=== PATIENT | female | born 1995 | race Caucasian/White ===

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

== ENCOUNTER 2017-02-09 16:47 | Emergency (ER) | payer OTHER ==
[2017-02-09 16:59] VITALS: O2SAT 100
[2017-02-09] MEDS ORDERED: TORAdol 30 mg Injection IM ONE (17:41)
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
[2017-02-09] MEDS ORDERED: TORAdol 30 mg Injection ONE (17:47)
[2017-02-09 18:47] VITALS: BP 142/77; PULSE 76
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
== END 2017-02-09 18:48 | disposition home or self-care (01) ==
LOC: ED 16:47
DX: S22.20XA Unspecified fracture of sternum, initial encounter for closed fracture (principal); R07.89 Other chest pain; Y04.0XXA Assault by unarmed brawl or fight, initial encounter
CPT/HCPCS: 71020; 71120; 96372; 99283; J1885

== ENCOUNTER 2017-08-09 14:24 | Emergency (ER) | payer OTHER ==
[2017-08-09 14:41] VITALS: BP 146/79; PULSE 112; O2SAT 98
[2017-08-09] MEDS ORDERED: TYLENOL EXTRA STRENGTH 500 MG PO STA (14:53)
--- NOTE | 2017-08-09 14:58 | ERPHSYRPT ---
- History of Present Illness Time Seen by Provider: 08/09/17 14:52 Source: patient Exam Limitations: no limitations Patient Subjective Stated Complaint: patietn experiencing sore throat and vomitting, states shes got nasal and oral congestion. toothache is horrible Triage Nursing Assessment: pt alert nad orientedx3, able to ambulate by self, skin wamr dry and intact, throat is reddened with some blisters, nasal nad oral drainange coughing up green mucus, tooth broken off on upper left side of the mouth. Physician History: The patient is a 22-year-old female who is 5 months complaining of tooth and gum pain on the left upper and a sore throat. The dental problem began yesterday morning and the sore throat began last night. She has a known cracked tooth at the site of the pain. She denies fever or chills. She took an unknown antibiotic for the tooth pain. She has been vomiting today but she does not feel that is a concern because she is able to drink water. Her past medical history is significant for frequent strep throat. She also noted that yesterday morning she woke up with reflux. Timing/Duration: gradual onset Severity: moderate ENT Location: throat, dental Prearrival Treatment: prescription meds Modifying Factors: Improves With: activity Associated Symptoms: sore throat, tooth pain, No fever, No chills Allergies/Adverse Reactions: Penicillins Allergy (Verified 04/24/16 21:27) Hx Tetanus, Diphtheria Vaccination/Date Given: Yes Hx Influenza Vaccination/Date Given: No Hx Pneumococcal Vaccination/Date Given: No Immunizations Up to Date: Yes - Review of Systems Constitutional: No Fever, No Chills Eyes: No Symptoms Ears, Nose, & Throat: Throat Pain, Hoarse Respiratory: No Cough, No Dyspnea Cardiac: No Chest Pain, No Edema, No Syncope Abdominal/Gastrointestinal: No Abdominal Pain, No Nausea, No Vomiting, No Diarrhea Genitourinary Symptoms: No Dysuria Musculoskeletal: No Back Pain, No Neck Pain Skin: No Rash Neurological: No Dizziness, No Focal Weakness, No Sensory Changes Psychological: No Symptoms Endocrine: No Symptoms Hematologic/Lymphatic: No Symptoms Immunological/Allergic: No Symptoms All Other Systems: Reviewed and Negative - Past Medical History Pertinent Past Medical History: No Neurological History: No Pertinent History ENT History: Other Cardiac History: No Pertinent History Respiratory History: No Pertinent History Endocrine Medical History: No Pertinent History Musculoskeletal History: No Pertinent History GI Medical History: No Pertinent History History: No Pertinent History Psycho-Social History: Attention Deficit Disorder Female Reproductive Disorders: Other Other Medical History: hx of chronic tonsilitis - Past Surgical History Past Surgical History: Yes Neuro Surgical History: No Pertinent History Cardiac: No Pertinent History Respiratory: No Pertinent History Gastrointestinal: No Pertinent History Genitourinary: No Pertinent History Musculoskeletal: No Pertinent History Female Surgical History: No Pertinent History Other Surgical History: D AND C - Social History Smoking Status: Current every day smoker How long have you smoked: 4 y Exposure to second hand smoke: Yes Alcohol Use: None Drug Use: none Patient Lives Alone: No Significant Family History: no pertinent family hx - Female History Hx Now: Yes Expected Date of Delivery: 11/22/17 - Nursing Vital Signs Nursing Vital Signs: Initial Vital Signs Temperature 97.9 F 08/09/17 14:25 Pulse Rate 112 H 08/09/17 14:25 Respiratory Rate 20 08/09/17 14:25 Blood Pressure 146/79 08/09/17 14:25 O2 Sat by Pulse Oximetry 98 08/09/17 14:25 Pain Scale Pain Intensity 8 - Physical Exam General Appearance: no apparent distress, alert Eye Exam: bilateral eye: PERRL, EOMI Ear Exam: bilateral ear: auricle normal Nasal Exam: normal inspection Throat Exam: dental tenderness (left upper posterior molar is avulsed with erythema of surrounding gum tissue.), pharynx tenderness Neck Exam: supple Cardiovascular/Respiratory Exam: normal breath sounds, regular rate/rhythm Abdominal Exam: non-tender, soft Neurologic Exam: alert, oriented x 3, sensation nml, No motor deficits Skin Exam: normal color, warm, dry SpO2 Interpretation: normal SpO2: 98 Oxygen Delivery: Room Air Ordered Tests: Active Orders 24 hr Category Date Time Status CULTURE, THROAT Stat Lab 08/09/17 14:45 Received STREP SCREEN-BETA A Stat Lab 08/09/17 14:45 Completed Medication Summary Discontinued Medications Generic Name Dose Route Start Last Admin Trade Name Freq PRN Reason Stop Dose Admin Acetaminophen 1,000 mg 08/09/17 14:53 08/09/17 15:02 Tylenol Extra Strength 500 Mg PO 08/09/17 14:54 1,000 mg STAT STA Administration Acetaminophen Confirm 08/09/17 15:01 Tylenol Extra Strength 500 Mg Administered 08/09/17 15:02 Dose 1,000 mg .ROUTE .ST[facility]-MED ONE Lab/Rad Data: Laboratory Results 08/09/17 Range/Units 14:45 Streptococcus Screen NEGATIVE (Negative) - Progress Progress: unchanged Progress Note: 08/09/17 15:30 Pt given tylenol 1000 mg PO and immediately complained of dental pain. Counseled pt/family regarding: lab results, diagnosis - Departure Time of Disposition: 15:31 Departure Disposition: Home Clinical Impression: Dental abscess Condition: Stable Critical Care Time: No Referrals: MARIBETH CONRAD MD [Primary Care Provider] - Additional Instructions: You have a dental abscess and a sore throat. The rapid strep test was negative. You were given Tylenol 1000 mg in the ER. Continue to take Tylenol 1000 mg every 6-8 hours as needed. At this time I have declined to give you narcotics because of your . Your pain just started easing off when she started taking the antibiotic. Take cefdinir 300 mg 2 times a day for 10 days. Follow-up with the dentist on Saturday. Prescriptions: Cefdinir 300 mg PO BID #20 capsule
[2017-08-09] MEDS ORDERED: TYLENOL EXTRA STRENGTH 500 MG ONE (15:01)
== END 2017-08-09 15:44 | disposition home or self-care (01) ==
LOC: ED 14:24
DX: O26.892 Other specified pregnancy related conditions, second trimester (principal); K04.7 Periapical abscess without sinus; J02.9 Acute pharyngitis, unspecified
CPT/HCPCS: 87070; 87430; 99283; A9270-GY

== ENCOUNTER 2017-09-03 21:42 | Emergency (ER) | payer OTHER | END 2017-09-03 23:04 | disposition left against medical advice (07) | LOC: ED 21:42 | DX: R10.9 Unspecified abdominal pain (principal) ==

== ENCOUNTER 2017-09-11 19:23 | Emergency (ER) | payer OTHER ==
[2017-09-11 20:43] VITALS: BP 111/78
[2017-09-11] MEDS ORDERED: GI COCKTAIL 45 ML (Maalox/Lidocaine) PO ONE (20:48)
[2017-09-11] MEDS ORDERED: XYLOCAINE HCl Viscous ONE (20:53)
[2017-09-11] MEDS ORDERED: MAALOX ES 30 ML UNIT DOSE ONE (20:53)
[2017-09-11 20:56] VITALS: PULSE 100; O2SAT 94
--- NOTE | 2017-09-11 21:22 | ERPHSYRPT ---
- History of Present Illness Time Seen by Provider: 09/11/17 20:30 Historian: patient Exam Limitations: no limitations Patient Subjective Stated Complaint: c/o recent hx of "black stools" 1 week ago though reports still having pain to upper abd, increased reflux, and pain with bm. reports soft stools Triage Nursing Assessment: Pt 30 wks preg FHT 150. PT reports dull pain to upper abd states worse with eating and when having BM. pt states pain is constant and dull to upper abd going up into throat. pt reports pain to throat worse in am. Denies any blood in stool at this time. TP p/w/d resp easy a@[id number] Physician History: 22 y/o white female presents with 1 week h/o black stools intermittently one week ago. she is 30 weeks . pt states she feels it is relux of acid. pts gallbladder still in place. no n/v/d. pt has non radiating upper midline discomfort assoc with eating and having a bowel movement. fht of 150 on exam today. Timing/Duration: day(s) (a few ) Activities at Onset: other (eating and having bms) Abdominal Pain Onset Location: LUQ, epigastric Pain Radiation: no radiation Severity of Pain-Max: mild Severity of Pain-Current: mild Modifying Factors: Improves With: defecating, eating (both worsen) Associated Symptoms: No back, No chest pain, No diaphoresis, No diarrhea, No fever/chills, No nausea, No shortness of breath, No vomiting Previous symptoms: same symptoms as today Allergies/Adverse Reactions: Penicillins Allergy (Verified 04/24/16 21:27) Hx Tetanus, Diphtheria Vaccination/Date Given: Yes Hx Influenza Vaccination/Date Given: No Hx Pneumococcal Vaccination/Date Given: No - Review of Systems Constitutional: No Symptoms, No Fever, No Chills Eyes: No Symptoms Ears, Nose, & Throat: No Symptoms Respiratory: No Symptoms, No Cough, No Dyspnea, No Stridor, No Wheezing Cardiac: No Symptoms, No Chest Pain, No Palpitations Abdominal/Gastrointestinal: Abdominal Pain (epigastric), No Nausea, No Vomiting , No Diarrhea, No Constipation Genitourinary Symptoms: No Symptoms, Dysuria, Frequency, Hematuria Musculoskeletal: No Symptoms, No Back Pain, No Neck Pain Skin: No Symptoms, No Cellulitis Neurological: No Symptoms, No Dizziness Psychological: No Symptoms Endocrine: No Symptoms Hematologic/Lymphatic: No Symptoms Immunological/Allergic: No Symptoms All Other Systems: Reviewed and Negative - Past Medical History Pertinent Past Medical History: No Neurological History: No Pertinent History ENT History: Other Cardiac History: No Pertinent History Respiratory History: No Pertinent History Endocrine Medical History: No Pertinent History Musculoskeletal History: No Pertinent History GI Medical History: No Pertinent History History: No Pertinent History Psycho-Social History: Attention Deficit Disorder Female Reproductive Disorders: Other Other Medical History: hx of chronic tonsilitis - Past Surgical History Past Surgical History: Yes Neuro Surgical History: No Pertinent History Cardiac: No Pertinent History Respiratory: No Pertinent History Gastrointestinal: No Pertinent History Genitourinary: No Pertinent History Musculoskeletal: No Pertinent History Female Surgical History: No Pertinent History Other Surgical History: D AND C - Social History Smoking Status: Current every day smoker How long have you smoked: 4 y Exposure to second hand smoke: Yes Alcohol Use: None Drug Use: none Patient Lives Alone: No Significant Family History: no pertinent family hx - Female History Hx Now: Yes Expected Date of Delivery: 11/22/17 - Nursing Vital Signs Nursing Vital Signs: Initial Vital Signs Temperature 98.1 F 09/11/17 19:56 Pulse Rate 97 H 09/11/17 19:56 Respiratory Rate 18 09/11/17 19:56 Blood Pressure 114/88 09/11/17 19:56 O2 Sat by Pulse Oximetry 97 09/11/17 19:56 Pain Scale Pain Intensity 5 - Physical Exam General Appearance: no apparent distress Eye Exam: PERRL/EOMI, eyes nml inspection Ears, Nose, Throat Exam: normal ENT inspection Neck Exam: normal inspection, non-tender, supple, full range of motion Respiratory Exam: normal breath sounds, lungs clear, airway intact, No chest tenderness, No respiratory distress Cardiovascular Exam: regular rate/rhythm, normal heart sounds, normal peripheral pulses Gastrointestinal/Abdomen Exam: soft, normal bowel sounds, tenderness (mild epigastric), pulsatile mass, other ( abdomen), No distention, No guarding, No rebound Pelvic Exam: not done Rectal Exam: deferred Back Exam: normal inspection, normal range of motion Extremity Exam: normal inspection, normal range of motion, pelvis stable Neurologic Exam: alert, oriented x 3, cooperative, director of tax services II-XII nml as tested, normal mood/affect, nml cerebellar function, nml station & gait Skin Exam: normal color, warm, dry SpO2 Interpretation: borderline oxygenation SpO2: 94 Oxygen Delivery: Room Air - Course Nursing assessment & vital signs reviewed: Yes Ordered Tests: Medication Summary Discontinued Medications Generic Name Dose Route Start Last Admin Trade Name Haylee PRN Reason Stop Dose Admin Al Hydrox/Mg Hydrox/Simethicone Confirm 09/11/17 20:53 Maalox Es 30 Ml Unit Dose Administered 09/11/17 20:54 Dose 30 ml .ROUTE .STK-MED ONE Lidocaine HCl Confirm 09/11/17 20:53 Xylocaine Hcl Viscous * Administered 09/11/17 20:54 Dose 15 ml .ROUTE .ST[facility]-MED ONE Magnesium Hydroxide 45 ml 09/11/17 20:48 09/11/17 20:56 Gi Cocktail 45 Ml (Maalox/Lidocaine) PO 09/11/17 20:49 45 ml STAT ONE Administration - Progress Progress: unchanged Progress Note: 09/11/17 21:25 gi cocktail did not sig improve discomfort. spoke to pt about no need for ct scan or u/s tonight. will tx pts sx as she does not have an acute abdomen and is 30 weeks . Counseled pt/family regarding: diagnosis, need for follow-up - Departure Time of Disposition: 21:26 Departure Disposition: Home Clinical Impression: Gastritis, Gastroesophageal reflux disease Condition: Stable Critical Care Time: No Referrals: MARIBETH CONRAD MD [Primary Care Provider] - Additional Instructions: drink plenty of fluids. avoid fatty, greasy, spicy foods. take medications as prescribed. sleep with head elevated to aid in reducing acid reflux symptoms. follow up with primary doctor for further management Prescriptions: Ranitidine HCl [Zantac] 150 mg PO BID #10 tablet
[2017-09-11] MEDS ORDERED: Pepcid 20 MG PO ONE (21:30)
[2017-09-11] MEDS ORDERED: Pepcid 20 MG ONE (21:32)
== END 2017-09-11 21:37 | disposition home or self-care (01) ==
LOC: ED 19:23
DX: O26.893 Other specified pregnancy related conditions, third trimester (principal); Z3A.30 30 weeks gestation of pregnancy; K29.70 Gastritis, unspecified, without bleeding; K21.9 Gastro-esophageal reflux disease without esophagitis
CPT/HCPCS: 99283; A9270-GY

== ENCOUNTER 2017-10-31 21:47 | Observation (INO) | payer OTHER ==
[2017-10-31 23:01] VITALS: O2SAT 83
[2017-10-31] MEDS ORDERED: TYLENOL EXTRA STRENGTH 500 MG ONE (23:29)
[2017-10-31] MEDS ORDERED: TYLENOL EXTRA STRENGTH 500 MG PO ONE (23:30)
[2017-11-01 00:09] VITALS: BP 113/57; PULSE 81
== END 2017-11-01 00:05 | disposition home or self-care (01) ==
LOC: OB 21:47
PROVIDERS: ADMIT Family Medicine; ATTEND Family Medicine
DX: Z34.83 Encounter for supervision of other normal pregnancy, third trimester (principal)
CPT/HCPCS: G0378 ×2; A9270-GY

== ENCOUNTER 2017-11-17 19:30 | Inpatient (IN) | payer OTHER ==
[2017-11-17] MEDS ORDERED: XYLOCAINE 1% HCL 20 ML MDV IJ PRN (21:19)
[2017-11-17] MEDS ORDERED: Ephedrine Sulfate 50 MG/ML IV PRN (21:19)
[2017-11-17] MEDS ORDERED: TYLENOL EXTRA STRENGTH 500 MG PO PRN (21:19)
[2017-11-17] MEDS ORDERED: OB EPIDURAL NAROPIN/SUFENTANIL IN NACL EPIDURAL PRN (21:19)
[2017-11-17 21:23] LABS: Amphetamine,Urine NEGATIVE (NEGATIVE); Barbiturate,Urine NEGATIVE (NEGATIVE); Benzodiazepine,Urine NEGATIVE (NEGATIVE); Cocaine,Urine NEGATIVE (NEGATIVE); Methadone,Urine NEGATIVE (NEGATIVE); Opiate,Urine NEGATIVE (NEGATIVE); PCP,Urine NEGATIVE (NEGATIVE); THC,Urine NEGATIVE (NEGATIVE)
[2017-11-17] MEDS ORDERED: PITOCIN 30 UNITS/ LR 500 ML 500 ML IV SCH (21:30)
[2017-11-17] MEDS ORDERED: Lactated Ringers 1,000 ML IV SCH (21:30)
[2017-11-17] MEDS: Lactated Ringers 1,000 ML IV ONE ×2 (21:32→22:35)
[2017-11-18 00:25] LABS: BASOPHIL % 0.1 % (0.0-0.4); Basophil (Absolute #) 0.02 (0-0.4); Eosinophil % 0.5 % (0.00-5.0); Eosinophil (Absolute #) 0.09 (0-0.5); Granulocyte Absolute (ANC) 11.73 (1.4-6.9); Granulocytes % 71.5 % (36.0-66.0); Hematocrit 32.8 % (35-47); Hemoglobin 11.2 gm/dl (12.0-16.0); Lymphocyte (Absolute #) 3.54 (1.0-4.6); Lymphocytes % 21.5 % (24.0-44.0); Mean Cell Volume 90.9 fl (78-100); Mean Corpuscular Hgb Concent. 34.1 g/dl (32-36); Mean Platelet Volume 10.7 fl (6-9.5); Monocyte (Absolute #) 1.06 (0.0-1.3); Monocytes % 6.4 % (0.0-12.0); Platelet Count 305 K/mm3 (150-450); Red Blood Count 3.61 M/mm3 (4.1-5.4); Red Cell Distribution Width 13.4 % (11.5-14.0); White Blood Count 16.4 K/mm3 (4.0-10.5)
[2017-11-18 02:49] VITALS: O2SAT 100
[2017-11-18] MEDS ORDERED: Dermoplast Spray TP PRN (04:17)
[2017-11-18] MEDS: TUCKS TP PRN (04:26)
[2017-11-18] MEDS: NORCO 5/325 MG PO PRN ×4 (04:26→20:40)
[2017-11-18 04:49] LABS: BAND 4 % (0.0-2.0); Eosinophil 1 % (0.00-3.0); Lymphocytes 18 % (24-44); Monocyte 4 % (0.0-12.0); Neutrophils 73 % (36.0-66.0); Platelet Estimate NORMAL (NORMAL); Total Cells Counted 100
[2017-11-18 05:35] LABS: ABO TYPING AB
[2017-11-18 05:36] LABS: RH TYPING NEGATIVE
[2017-11-18 05:40] LABS: ANTIBODY SCREEN POSITIVE (NEGATIVE)
[2017-11-18 06:14] LABS: Hematocrit 30.6 % (35-47); Hemoglobin 10.3 gm/dl (12.0-16.0); Mean Cell Volume 91.3 fl (78-100); Mean Corpuscular Hemoglobin 30.7 pg (26-32); Mean Corpuscular Hgb Concent. 33.7 g/dl (32-36); Mean Platelet Volume 10.8 fl (6-9.5); Platelet Count 284 K/mm3 (150-450); Red Blood Count 3.35 M/mm3 (4.1-5.4); Red Cell Distribution Width 13.4 % (11.5-14.0); White Blood Count 19.9 K/mm3 (4.0-10.5)
[2017-11-18 06:15] LABS: Appearance CLOUDY (CLEAR); Bilirubin NEGATIVE (NEGATIVE); Blood MODERATE Ery/ul (0-5); Glucose NEGATIVE (NEGATIVE); Ketones NEGATIVE (NEGATIVE); Leukocyte Esterase NEGATIVE (NEGATIVE); Nitrite NEGATIVE (NEGATIVE); Protein,Urine Dip NEGATIVE (Negative); Urobilinogen NEGATIVE mg/dL (0-1)
[2017-11-18 06:58] LABS: BAND 3 % (0.0-2.0); Eosinophil 1 % (0.00-3.0); Lymphocytes 8 % (24-44); Monocyte 4 % (0.0-12.0); Neutrophils 84 % (36.0-66.0); Platelet Estimate NORMAL (NORMAL); Total Cells Counted 100
[2017-11-18] MEDS: FERREX 150 PO SCH (09:43)
[2017-11-18] MEDS: Colace 100 MG PO SCH ×2 (09:43→22:23)
[2017-11-18] MEDS: MOTRIN 400 MG PO PRN ×2 (11:14→17:55)
[2017-11-19] MEDS: NORCO 5/325 MG PO PRN ×3 (03:20→20:22)
[2017-11-19 05:29] LABS: Granulocyte Absolute (ANC) 7.05 (1.4-6.9); Hematocrit 30.6 % (35-47); Hemoglobin 10.4 gm/dl (12.0-16.0); Mean Cell Volume 91.3 fl (78-100); Mean Platelet Volume 10.1 fl (6-9.5); Platelet Count 261 K/mm3 (150-450); Red Blood Count 3.35 M/mm3 (4.1-5.4); Red Cell Distribution Width 13.6 % (11.5-14.0); White Blood Count 11.8 K/mm3 (4.0-10.5)
[2017-11-19] MEDS: MOTRIN 400 MG PO PRN ×3 (08:50→23:30)
[2017-11-19 09:45] LABS: BAND 3 % (0.0-2.0); Eosinophil 1 % (0.00-3.0); Lymphocytes 22 % (24-44); Monocyte 10 % (0.0-12.0); Neutrophils 64 % (36.0-66.0); Platelet Estimate NORMAL (NORMAL); Total Cells Counted 100
[2017-11-19] MEDS ORDERED: Rhogam Plus 300 MCG IM ONE (10:00)
[2017-11-19] MEDS: Colace 100 MG PO SCH ×2 (10:23→20:21)
[2017-11-19] MEDS: FERREX 150 PO SCH (10:23)
[2017-11-19] MEDS ORDERED: Abilify 10 MG PO SCH ×2 (20:00→23:29)
[2017-11-19] MEDS ORDERED: Abilify 10 MG ONE (20:11)
[2017-11-20] MEDS: NORCO 5/325 MG PO PRN ×2 (02:04→11:03)
[2017-11-20] MEDS: MOTRIN 400 MG PO PRN (05:30)
[2017-11-20] MEDS ORDERED: Rhogam Plus 300 MCG IM ONE (10:00)
--- NOTE | 2017-11-20 10:05 | PCM.DS ---
Discharge Summary Date of Admission: 11/17/17 19:30 Admitting Physician: MARIBETH CONRAD Consults: Consults on Case 11/17/17 21:20 Notify Anesthesia Provider PRN Primary Care Provider: MARIBETH CONRAD Allergies Allergies Penicillins Allergy (Verified 10/31/17 23:03) Swelling of Face Hospital Summary - Hospital Course Hospital Course: patient presented in spontaneous labor, had normal . no complications. bottle feeding her male, well bonded - Vitals & Intake/Output Vital Signs: Vital Signs Temperature 97.9 F 11/20/17 02:07 Pulse Rate 52 L 11/20/17 02:07 Respiratory Rate 18 11/20/17 02:07 Blood Pressure 128/75 11/20/17 02:07 O2 Sat by Pulse Oximetry 100 11/18/17 01:00 Intake & Output: Intake & Output 11/17/17 11/18/17 11/19/17 11/20/17 11:59 11:59 11:59 11:59 Intake Total 3385 540 1450 Output Total 450 Balance 2935 540 1450 Weight 76.657 kg - Lab Result Diagrams: 11/19/17 05:00 Micro Results-Entire Visit: Microbiology 11/17/17 20:00 Urine Culture - Final Urine, Void <10K NORMAL SKIN JAMIA PROBABLE SKIN CONTAMINANT - Procedures and Test Procedures and Tests throughout Hospitalization: Therapy Orders & Screens 11/18/17 01:15 Standby Routine Comment: Diagnosis: contractions Discharge Exam General Appearance: no apparent distress, alert Skin Exam: normal color, warm, dry Respiratory Exam: normal breath sounds, lungs clear, No respiratory distress Cardiovascular Exam: regular rate/rhythm, normal heart sounds Gastrointestinal/Abdomen Exam: soft, No tenderness, No mass Extremity Exam: normal inspection, normal range of motion Final Diagnosis/Problem List - Final Discharge Diagnosis/Problem (1) Vaginal delivery Current Visit: No Status: Acute - Discharge Disposition: Home, Self-Care Condition: Stable Prescriptions: No Action ARIPiprazole [Aripiprazole] 15 mg PO HS Additional Instructions: take tylenol or ibuprofen as needed for pain Follow up with: MARIBETH CONRAD MD [Primary Care Provider] - 1 Week
[2017-11-20] MEDS: FERREX 150 PO SCH (11:02)
[2017-11-20] MEDS: Colace 100 MG PO SCH (11:03)
[2017-11-20] MEDS: TUCKS TP PRN (11:07)
[2017-11-20 11:29] VITALS: BP 134/72; PULSE 63
== END 2017-11-20 15:05 | disposition home or self-care (01) | DRG 775 ==
LOC: OB 19:30 → OBSVTOIN 19:30
PROVIDERS: ADMIT Family Medicine; ATTEND Family Medicine
PROC: 10E0XZZ Delivery of Products of Conception, External Approach (ICD-10-PCS; principal; 2017-11-17)
DX: O80 Encounter for full-term uncomplicated delivery (principal); Z3A.39 39 weeks gestation of pregnancy; Z37.0 Single live birth
CPT/HCPCS: 36415; 80307; 81001; 85025; 85461; 86850; 86900; 86901; 87086; 94799; 96372; G0378; J2590; J2790; J2795; A9270-GY

== ENCOUNTER 2017-12-21 11:31 | Emergency (ER) | payer OTHER ==
--- NOTE | 2017-12-21 12:02 | ERPHSYRPT ---
- History of Present Illness Time Seen by Provider: 12/21/17 11:44 Source: patient Exam Limitations: no limitations Physician History: The patient is a 22-year-old female complaining of left upper molar and gum pain for 3 days. It hurts her at night. It's red and swollen. She saw a dentist about this who referred her to an oral surgeon. She states the oral surgeon wanted an additional $400 to help her. She does not have the money. She denies fever or chills. Timing/Duration: gradual onset, days (3) Severity: moderate ENT Location: dental Prearrival Treatment: no prearrival treatment Modifying Factors: Improves With: nothing Associated Symptoms: tooth pain, No fever, No chills, No headache Allergies/Adverse Reactions: Penicillins Allergy (Verified 12/21/17 11:47) Swelling of Face Home Medications: ARIPiprazole [Aripiprazole] 15 mg PO HS 11/17/17 [History] Hx Tetanus, Diphtheria Vaccination/Date Given: Yes Hx Influenza Vaccination/Date Given: No Hx Pneumococcal Vaccination/Date Given: No - Review of Systems Constitutional: No Fever, No Chills Eyes: No Symptoms Ears, Nose, & Throat: Mouth Pain Respiratory: No Cough, No Dyspnea Cardiac: No Chest Pain, No Edema, No Syncope Abdominal/Gastrointestinal: No Abdominal Pain, No Nausea, No Vomiting, No Diarrhea Genitourinary Symptoms: No Dysuria Musculoskeletal: No Back Pain, No Neck Pain Skin: No Rash Neurological: No Dizziness, No Focal Weakness, No Sensory Changes Psychological: No Symptoms Endocrine: No Symptoms Hematologic/Lymphatic: No Symptoms Immunological/Allergic: No Symptoms All Other Systems: Reviewed and Negative - Past Medical History Pertinent Past Medical History: No Neurological History: No Pertinent History ENT History: Other Cardiac History: No Pertinent History Respiratory History: No Pertinent History Endocrine Medical History: No Pertinent History Musculoskeletal History: No Pertinent History GI Medical History: No Pertinent History History: No Pertinent History Psycho-Social History: Attention Deficit Disorder Female Reproductive Disorders: Other Other Medical History: hx of chronic tonsilitis. bipolar. ptsd - Past Surgical History Past Surgical History: Yes Neuro Surgical History: No Pertinent History Cardiac: No Pertinent History Respiratory: No Pertinent History Gastrointestinal: No Pertinent History Genitourinary: No Pertinent History Musculoskeletal: No Pertinent History Female Surgical History: No Pertinent History Other Surgical History: D AND C - Social History Smoking Status: Current every day smoker How long have you smoked: 4 y Exposure to second hand smoke: No Alcohol Use: None Drug Use: none Patient Lives Alone: No Significant Family History: no pertinent family hx - Physical Exam General Appearance: no apparent distress, alert Eye Exam: bilateral eye: PERRL, EOMI Ear Exam: bilateral ear: auricle normal, canal normal Nasal Exam: normal inspection Throat Exam: dental tenderness (poor dentition; swelling, redness, and tenderness to gum tissue in upper anterior left molars.) Neck Exam: supple Cardiovascular/Respiratory Exam: normal breath sounds, regular rate/rhythm Abdominal Exam: non-tender, soft Neurologic Exam: alert, oriented x 3, sensation nml, No motor deficits Skin Exam: normal color, warm, dry SpO2 Interpretation: normal Oxygen Delivery: Room Air - Departure Time of Disposition: 12:06 Departure Disposition: Home Clinical Impression: Dental abscess Condition: Stable Critical Care Time: No Referrals: MARIBETH CONRAD MD [Primary Care Provider] - Additional Instructions: You have poor dentition and a dental abscess. You were given Toradol 60 mg IM in the ER. Take naproxen 500 mg 2 times a day as needed. Also take Tylenol 1000 mg every 6-8 hours as needed. Please call your dentist and discussed with them about getting a different oral surgeon. Prescriptions: Clindamycin HCl 1 cap PO QID #40 capsule Naproxen 500 mg PO BID PRN #30 tablet
[2017-12-21] MEDS ORDERED: TORAdol 30 mg Injection IM ONE (12:03)
[2017-12-21] MEDS ORDERED: TORAdol 30 mg Injection ONE (12:09)
[2017-12-21 12:12] VITALS: BP 112/82; PULSE 72; O2SAT 99
== END 2017-12-21 12:37 | disposition home or self-care (01) ==
LOC: ED 11:31
DX: K04.7 Periapical abscess without sinus (principal)
CPT/HCPCS: 96372; 99283; J1885

== ENCOUNTER 2019-03-01 02:54 | Observation (INO) | payer MEDICAID, OTHER ==
[2019-03-01 03:42] LABS: Amourphous Crystal FEW /HPF (NEGATIVE); Appearance SLIGHTLY CLOUDY (CLEAR); Bilirubin NEGATIVE (NEGATIVE); Blood NEGATIVE Ery/ul (0-5); Epithelial Cells RARE /HPF (FEW); Glucose NEGATIVE (NEGATIVE); Ketones NEGATIVE (NEGATIVE); Leukocyte Esterase NEGATIVE (NEGATIVE); Mucus SLIGHT /HPF (NEGATIVE); Nitrite NEGATIVE (NEGATIVE); Protein,Urine Dip NEGATIVE (Negative); RBC 0-2 /HPF (0-2); Specific Gravity 1.015 (1.005-1.025); Urobilinogen NEGATIVE mg/dL (0-1)
[2019-03-01 03:50] LABS: Amphetamine,Urine NEGATIVE (NEGATIVE); Barbiturate,Urine NEGATIVE (NEGATIVE); Benzodiazepine,Urine NEGATIVE (NEGATIVE); Cocaine,Urine NEGATIVE (NEGATIVE); Methadone,Urine NEGATIVE (NEGATIVE); Opiate,Urine NEGATIVE (NEGATIVE); PCP,Urine NEGATIVE (NEGATIVE); THC,Urine NEGATIVE (NEGATIVE)
[2019-03-01] MEDS ORDERED: Lactated Ringers 1,000 ML IV SCH (04:30)
[2019-03-01 08:43] VITALS: BP 107/57; PULSE 77
--- NOTE | 2019-03-01 09:09 | XRAY ---
Indication: Abdominal cramping. Evaluate cervical length. Two-dimensional transvaginal pelvic sonogram performed to evaluate cervical length. Cervix is closed measuring 3.4 cm in length.
[2019-03-01] MEDS ORDERED: ROCEPHIN 1 Gm-D5w 50 ml Bag** 1 G/50 ML IVPB IV SCH ×2 (10:00→22:00)
[2019-03-01 11:47] LABS: Hematocrit 29.2 % (35-47); Mean Cell Volume 93.6 fl (78-100); Mean Corpuscular Hemoglobin 32.1 pg (26-32); Mean Corpuscular Hgb Concent. 34.2 g/dl (32-36); Mean Platelet Volume 10.4 fl (7.5-11.0); Platelet Count 199 K/mm3 (150-450); Red Blood Count 3.12 M/mm3 (4.1-5.4); Red Cell Distribution Width 12.4 % (11.5-14.0); White Blood Count 9.4 K/mm3 (4.0-10.5)
[2019-03-01 14:31] LABS: ABO TYPING AB; Antibody Screen NEGATIVE (NEGATIVE); RH TYPING NEGATIVE
[2019-03-03 13:40] LABS: Immune Status: Immune
[2019-03-03 13:54] LABS: RPR Screen Non Reactive (Non Reactive)
[2019-03-03 22:01] LABS: HIV1 Negative (Negative); HIV2 Negative (Negative)
[2019-03-03 22:34] LABS: HIV Antigen/Antibody Combo See Confirm (Non Reactive); Hepatitis B Sur Ag Screen Non Reactive (Non Reactive); Hepatitis C Antibody by EIA Non Reactive (Non Reactive)
== END 2019-03-01 12:15 | disposition home or self-care (01) ==
LOC: OB 02:54
PROVIDERS: ADMIT Family Medicine; ATTEND Family Medicine
DX: O47.02 False labor before 37 completed weeks of gestation, second trimester (principal); Z3A.24 24 weeks gestation of pregnancy
CPT/HCPCS: 36415; 76817; 80055; 80307; 81001; G0378; J0696

== ENCOUNTER 2019-05-09 18:01 | Emergency (ER) | payer OTHER ==
--- NOTE | 2019-05-09 18:43 | ERPHSYRPT ---
- History of Present Illness Time Seen by Provider: 05/09/19 18:32 Source: patient Exam Limitations: no limitations Patient Subjective Stated Complaint: pt reports shortness of breath, chest tightness with deep breath, headache, cough, sensitivity to light, generalized body aches starting yesterday. pt also reports left breast tenderness. pt reports she saw Dr Conrad 05/07/19 with complaints of nausea/vomiting and was prescribed promethazine, pt reports when she got to the pharmacy the script required a PA and it was busy and she did not want to wait. pt reports healthy thus far. pt denies any contractions at this time. pt denies any leaking of fluid or vaginal bleeding. Triage Nursing Assessment: pt is aox3, pt appears in no acute distress, pt speaking in full sentences, pupils perrl, afebrile, resps easy and non labored, lung sounds are clear throughout all leong, cap refill < 3 seconds, pt radial pulses strong and equal, abdomen, no edema appreciated, pt skin pink warm dry. Physician History: For the past 2 weeks pt has had earaches; for the past 2 days shortness of air, constant dull anterior chest pain 5/10, non-productive cough, sore throat and generalized aches. Pt also states 2 days ago she vomited x6 without blood and had about 10 episodes of diarrhea without blood. Pt states she is 34 weeks 5 days and has not had any abdominal pain and has good movement today. Pt is (one miscarriage). Allergies/Adverse Reactions: Penicillins Allergy (Verified 05/09/19 18:31) Swelling of Face Home Medications: Pnv No.103/Folic/Om3s/Fish Oil [ Gummies] 1 tab PO DAILY 03/01/19 [ History] Hx Tetanus, Diphtheria Vaccination/Date Given: Yes Hx Influenza Vaccination/Date Given: No Hx Pneumococcal Vaccination/Date Given: No Immunizations Up to Date: Yes Travel Risk - International Travel Have you traveled outside of the country in past 3 weeks: No Have you or anyone close to you been diagnosed with or: No Do your reside in a community with a known COVID-19 case?: Yes If Yes where:: [place] - Coronavirus Screening Has patient experienced Coronavirus symptoms: Yes Symptoms experienced: respiratory symptoms (i.e.Cought,shortness of breath) Date of respiratory symptoms onset:: 05/08/19 (cough & shortness of air) - Review of Systems Constitutional: No Fever Ears, Nose, & Throat: Ear Pain, Throat Pain Respiratory: Cough, Dyspnea Cardiac: Chest Pain Abdominal/Gastrointestinal: Vomiting, Diarrhea, No Abdominal Pain Musculoskeletal: Arthralgias All Other Systems: Reviewed and Negative - Past Medical History Pertinent Past Medical History: No Neurological History: No Pertinent History ENT History: Other Cardiac History: No Pertinent History Respiratory History: No Pertinent History Endocrine Medical History: No Pertinent History Musculoskeletal History: No Pertinent History GI Medical History: No Pertinent History History: No Pertinent History Psycho-Social History: Attention Deficit Disorder Female Reproductive Disorders: Other Other Medical History: hx of chronic tonsilitis. bipolar. ptsd - Past Surgical History Past Surgical History: Yes Neuro Surgical History: No Pertinent History Cardiac: No Pertinent History Respiratory: No Pertinent History Gastrointestinal: No Pertinent History Genitourinary: No Pertinent History Musculoskeletal: No Pertinent History Female Surgical History: No Pertinent History Other Surgical History: D AND C - Social History Smoking Status: Never smoker How long have you smoked: 12 yrs Exposure to second hand smoke: No Alcohol Use: None Drug Use: none Patient Lives Alone: No Significant Family History: no pertinent family hx - Female History Hx Now: Yes Expected Date of Delivery: 06/16/19 - Nursing Vital Signs Nursing Vital Signs: Initial Vital Signs Temperature 98.7 F 05/09/19 18:13 Pulse Rate 91 H 05/09/19 18:13 Respiratory Rate 22 05/09/19 18:13 Blood Pressure 112/71 05/09/19 18:13 O2 Sat by Pulse Oximetry 99 05/09/19 18:13 Pain Scale Pain Intensity 0 - Physical Exam General Appearance: alert Eye Exam: PERRL/EOMI Ears, Nose, Throat Exam: pharyngeal erythema (mild) Neck Exam: normal inspection Respiratory Exam: lungs clear Cardiovascular/Chest Exam: normal heart sounds Abdominal/Gastrointestinal Exam: normal bowel sounds, other (gravid uterus with fundus B/T umbilicus and xiphoid.), No tenderness Extremity Exam: No pedal edema Peripheral Pulses Exam: dorsalis-pedis (R): 2+, dorsalis-pedis (L): 2+ Neurologic Exam: alert, cooperative Skin Exam: warm, dry SpO2 Interpretation: normal SpO2: 99 O2 Delivery: Room Air - Course Nursing assessment & vital signs reviewed: Yes EKG Interpreted by Me: RATE (97), Sinus Rhythm, NORMAL AXIS, NORMAL INTERVALS Ordered Tests: Active Orders 24 hr Category Date Time Status EKG-ER Only STAT Care 05/09/19 18:45 Active IV Insertion STAT Care 05/09/19 19:40 Active AMYLASE Stat Lab 05/09/19 19:05 Completed BMP Urgent Lab 05/10/19 03:21 Completed CBC W DIFF Stat Lab 05/09/19 19:05 Completed CMP Stat Lab 05/09/19 19:05 Completed D-DIMER QUANTITATIVE Stat Lab 05/09/19 19:05 Completed LIPASE Stat Lab 05/09/19 19:05 Completed [place] Screen Stat Lab 05/09/19 19:05 Completed NT PRO BNP Stat Lab 05/09/19 19:05 Completed TROPONIN Q3H Lab 05/09/19 19:05 Completed TROPONIN Q3H Lab 05/09/19 22:35 Completed TROPONIN Q3H Lab 05/10/19 00:29 Completed TROPONIN Q3H Lab 05/10/19 03:21 Received TROPONIN Q3H Lab 05/10/19 06:45 Ordered UA W/RFX UR CULTURE Stat Lab 05/09/19 22:03 Completed Medication Summary Generic Name Dose Route Start Last Admin Trade Name Freq PRN Reason Stop Dose Admin Potassium Chloride/Sodium Chloride 1,000 mls @ 500 mls/hr 05/09/19 19:45 23:10 Sodium Chloride 0.9% W/ 20 Meq Kcl/Liter IV 06/08/19 19:44 Infused .Q2H DONALD Infusion Potassium Chloride/Sodium Chloride 1,000 mls @ 500 mls/hr 05/10/19 01:00 03:15 Sodium Chloride 0.9% W/ 20 Meq Kcl/Liter IV 06/09/19 00:59 Infused .Q2H DONALD Infusion Discontinued Medications Generic Name Dose Route Start Last Admin Trade Name Freq PRN Reason Stop Dose Admin Acetaminophen 650 mg 05/09/19 20:10 05/09/19 20:15 Tylenol 325 Mg PO 05/09/19 20:11 650 mg STAT ONE Administration Acetaminophen Confirm 05/09/19 20:14 Tylenol 325 Mg Administered 05/09/19 20:15 Dose 650 mg .ROUTE .STK-MED ONE Al Hydrox/Mg Hydrox/Simethicone 20 ml 05/10/19 01:13 Maalox Es 30 Ml Unit Dose PO 05/10/19 01:14 STAT ONE Al Hydrox/Mg Hydrox/Simethicone Confirm 05/10/19 01:14 Maalox Es 30 Ml Unit Dose Administered 05/10/19 01:15 Dose 30 ml .ROUTE .STK-[facility] ONE Al Hydrox/Mg Hydrox/Simethicone 30 ml 05/10/19 01:10 05/10/19 01:32 Maalox Es 30 Ml Unit Dose PO 05/10/19 01:11 30 ml STAT ONE Administration Potassium Bicarbonate 50 meq 05/10/19 00:50 05/10/19 00:57 K-Lyte 25 Meq PO 05/10/19 00:51 50 meq STAT ONE Administration Potassium Bicarbonate Confirm 05/10/19 00:54 K-Lyte 25 Meq Administered 05/10/19 00:55 Dose 50 meq .ROUTE .[facility] ONE Lab/Rad Data: Laboratory Result Diagrams 05/09/19 19:05 05/10/19 03:21 Laboratory Results 05/10/19 05/10/19 05/09/19 Range/Units 03: 00:29 22:35 WBC (4.0-10.5) K/mm3 RBC (4.1-5.4) M/mm3 Hgb (12.0-16.0) gm/dl Hct (35-47) % MCV (78-100) fl MCH (26-32) pg MCHC (32-36) g/dl RDW (11.5-14.0) % Plt Count (150-450) K/mm3 MPV (7.5-11.0) fl Gran % (36.0-66.0) % Eos # (Auto) (0-0.5) Absolute Lymphs (auto) (1.0-4.6) Absolute Monos (auto) (0.0-1.3) Lymphocytes % (24.0-44.0) % Monocytes % (0.0-12.0) % Eosinophils % (0.00-5.0) % Basophils % (0.0-0.4) % Absolute Granulocytes (1.4-6.9) Basophils # (0-0.4) D-Dimer (215-500) ng/mL Sodium 139 (137-145) mmol/L Potassium 3.6 D (3.5-5.1) mmol/L Chloride 110 H (98-107) mmol/L Carbon Dioxide 25 (22-30) mmol/L Anion Gap 8.0 (5-15) MEQ/L BUN 2 L (7-17) mg/dL Creatinine 0.31 L (0.52-1.04) mg/dL Estimated GFR > 60.0 ML/MIN Glucose 108 H (74-106) mg/dL Calcium 8.2 L (8.4-10.2) mg/dL Total Bilirubin (0.2-1.3) mg/dL AST (14-36) U/L ALT (0-35) U/L Alkaline Phosphatase (38-126) U/L Troponin I < 0.012 < 0.012 (0.000-0.034) ng/mL NT-Pro-B Natriuret Pep (0-450) pg/mL Serum Total Protein (6.3-8.2) g/dL Albumin (3.5-5.0) g/dL Amylase (30-110) U/L Lipase (23-300) U/L Urine Color (YELLOW) Urine Appearance (CLEAR) Urine pH (5-6) Ur Specific [place] (1.005-1.025) Urine Protein (Negative) Urine Ketones (NEGATIVE) Urine Blood (0-5) [place]/ul Urine Nitrite (NEGATIVE) Urine Bilirubin (NEGATIVE) Urine Urobilinogen (0-1) mg/dL Ur Leukocyte Esterase (NEGATIVE) Urine WBC (Auto) (0-5) /HPF Urine RBC (Auto) (0-2) /HPF U Epithel Cells (Auto) (FEW) /HPF Urine Bacteria (Auto) (NEGATIVE) /HPF Urine Mucus (Auto) (NEGATIVE) /HPF Urine Culture Reflexed (NO) Urine Glucose (NEGATIVE) mg/dL Monoscreen (Negative) Influenza Type A Ag (NEGATIVE) Influenza Type B Ag (NEGATIVE) RSV (PCR) (Negative) Group A Strep Antibody (NEGATIVE) 05/09/19 05/09/19 05/09/19 Range/Units 22:03 19:36 19:05 WBC (4.0-10.5) K/mm3 RBC (4.1-5.4) M/mm3 Hgb (12.0-16.0) gm/dl Hct (35-47) % MCV (78-100) fl MCH (26-32) pg MCHC (32-36) g/dl RDW (11.5-14.0) % Plt Count (150-450) K/mm3 MPV (7.5-11.0) fl Gran % (36.0-66.0) % Eos # (Auto) (0-0.5) Absolute Lymphs (auto) (1.0-4.6) Absolute Monos (auto) (0.0-1.3) Lymphocytes % (24.0-44.0) % Monocytes % (0.0-12.0) % Eosinophils % (0.00-5.0) % Basophils % (0.0-0.4) % Absolute Granulocytes (1.4-6.9) Basophils # (0-0.4) D-Dimer (215-500) ng/mL Sodium (137-145) mmol/L Potassium (3.5-5.1) mmol/L Chloride (98-107) mmol/L Carbon Dioxide (22-30) mmol/L Anion Gap (5-15) MEQ/L BUN (7-17) mg/dL Creatinine (0.52-1.04) mg/dL Estimated GFR ML/MIN Glucose (74-106) mg/dL Calcium (8.4-10.2) mg/dL Total Bilirubin (0.2-1.3) mg/dL AST (14-36) U/L ALT (0-35) U/L Alkaline Phosphatase (38-126) U/L Troponin I (0.000-0.034) ng/mL NT-Pro-B Natriuret Pep (0-450) pg/mL Serum Total Protein (6.3-8.2) g/dL Albumin (3.5-5.0) g/dL Amylase (30-110) U/L Lipase (23-300) U/L Urine Color YELLOW (YELLOW) Urine Appearance SLIGHTLY CLOUDY (CLEAR) Urine pH 7.0 (5-6) Ur Specific [place] 1.013 (1.005-1.025) Urine Protein NEGATIVE (Negative) Urine Ketones NEGATIVE (NEGATIVE) Urine Blood NEGATIVE (0-5) [place]/ul Urine Nitrite NEGATIVE (NEGATIVE) Urine Bilirubin NEGATIVE (NEGATIVE) Urine Urobilinogen NEGATIVE (0-1) mg/dL Ur Leukocyte Esterase TRACE (NEGATIVE) Urine WBC (Auto) 0-2 (0-5) /HPF Urine RBC (Auto) 0-2 (0-2) /HPF U Epithel Cells (Auto) FEW (FEW) /HPF Urine Bacteria (Auto) RARE (NEGATIVE) /HPF Urine Mucus (Auto) SLIGHT (NEGATIVE) /HPF Urine Culture Reflexed NO (NO) Urine Glucose NEGATIVE (NEGATIVE) mg/dL Monoscreen NEGATIVE (Negative) Influenza Type A Ag NEGATIVE (NEGATIVE) Influenza Type B Ag NEGATIVE (NEGATIVE) RSV (PCR) NEGATIVE (Negative) Group A Strep Antibody NEGATIVE (NEGATIVE) 05/09/19 05/09/19 05/09/19 Range/Units 19:05 19:05 19:05 WBC (4.0-10.5) K/mm3 RBC (4.1-5.4) M/mm3 Hgb (12.0-16.0) gm/dl Hct (35-47) % MCV (78-100) fl MCH (26-32) pg MCHC (32-36) g/dl RDW (11.5-14.0) % Plt Count (150-450) K/mm3 MPV (7.5-11.0) fl Gran % (36.0-66.0) % Eos # (Auto) (0-0.5) Absolute Lymphs (auto) (1.0-4.6) Absolute Monos (auto) (0.0-1.3) Lymphocytes % (24.0-44.0) % Monocytes % (0.0-12.0) % Eosinophils % (0.00-5.0) % Basophils % (0.0-0.4) % Absolute Granulocytes (1.4-6.9) Basophils # (0-0.4) D-Dimer 846 H* (215-500) ng/mL Sodium (137-145) mmol/L Potassium (3.5-5.1) mmol/L Chloride (98-107) mmol/L Carbon Dioxide (22-30) mmol/L Anion Gap (5-15) MEQ/L BUN (7-17) mg/dL Creatinine (0.52-1.04) mg/dL Estimated GFR ML/MIN Glucose (74-106) mg/dL Calcium (8.4-10.2) mg/dL Total Bilirubin (0.2-1.3) mg/dL AST (14-36) U/L ALT (0-35) U/L Alkaline Phosphatase (38-126) U/L Troponin I < 0.012 (0.000-0.034) ng/mL NT-Pro-B Natriuret Pep 79.7 (0-450) pg/mL Serum Total Protein (6.3-8.2) g/dL Albumin (3.5-5.0) g/dL Amylase 55 (30-110) U/L Lipase 115 (23-300) U/L Urine Color (YELLOW) Urine Appearance (CLEAR) Urine pH (5-6) Ur Specific [place] (1.005-1.025) Urine Protein (Negative) Urine Ketones (NEGATIVE) Urine Blood (0-5) [place]/ul Urine Nitrite (NEGATIVE) Urine Bilirubin (NEGATIVE) Urine Urobilinogen (0-1) mg/dL Ur Leukocyte Esterase (NEGATIVE) Urine WBC (Auto) (0-5) /HPF Urine RBC (Auto) (0-2) /HPF U Epithel Cells (Auto) (FEW) /HPF Urine Bacteria (Auto) (NEGATIVE) /HPF Urine Mucus (Auto) (NEGATIVE) /HPF Urine Culture Reflexed (NO) Urine Glucose (NEGATIVE) mg/dL Monoscreen (Negative) Influenza Type A Ag (NEGATIVE) Influenza Type B Ag (NEGATIVE) RSV (PCR) (Negative) Group A Strep Antibody (NEGATIVE) 05/09/19 05/09/19 05/09/19 Range/Units 19:05 19:05 00:29 WBC 11.4 H (4.0-10.5) K/mm3 RBC 3.17 L (4.1-5.4) M/mm3 Hgb 9.7 L (12.0-16.0) gm/dl Hct 28.5 L (35-47) % MCV 89.9 (78-100) fl MCH 30.6 (26-32) pg MCHC 34.0 (32-36) g/dl RDW 13.1 (11.5-14.0) % Plt Count 194 (150-450) K/mm3 MPV 10.5 (7.5-11.0) fl Gran % 75.0 H (36.0-66.0) % Eos # (Auto) 0.05 (0-0.5) Absolute Lymphs (auto) 1.98 (1.0-4.6) Absolute Monos (auto) 0.81 (0.0-1.3) Lymphocytes % 17.3 L (24.0-44.0) % Monocytes % 7.1 (0.0-12.0) % Eosinophils % 0.4 (0.00-5.0) % Basophils % 0.2 (0.0-0.4) % Absolute Granulocytes 8.56 H (1.4-6.9) Basophils # 0.02 (0-0.4) D-Dimer (215-500) ng/mL Sodium 139 138 (137-145) mmol/L Potassium 2.7 L* 2.7 L* (3.5-5.1) mmol/L Chloride 107 108 H (98-107) mmol/L Carbon Dioxide 26 24 (22-30) mmol/L Anion Gap 8.3 8.7 (5-15) MEQ/L BUN 3 L 3 L (7-17) mg/dL Creatinine 0.29 L 0.35 L (0.52-1.04) mg/dL Estimated GFR > 60.0 > 60.0 ML/MIN Glucose 92 170 H (74-106) mg/dL Calcium 8.7 8.5 (8.4-10.2) mg/dL Total Bilirubin 0.40 (0.2-1.3) mg/dL AST 23 (14-36) U/L ALT 12 (0-35) U/L Alkaline Phosphatase 72 (38-126) U/L Troponin I (0.000-0.034) ng/mL NT-Pro-B Natriuret Pep (0-450) pg/mL Serum Total Protein 6.2 L (6.3-8.2) g/dL Albumin 3.1 L (3.5-5.0) g/dL Amylase (30-110) U/L Lipase (23-300) U/L Urine Color (YELLOW) Urine Appearance (CLEAR) Urine pH (5-6) Ur Specific [place] (1.005-1.025) Urine Protein (Negative) Urine Ketones (NEGATIVE) Urine Blood (0-5) [place]/ul Urine Nitrite (NEGATIVE) Urine Bilirubin (NEGATIVE) Urine Urobilinogen (0-1) mg/dL Ur Leukocyte Esterase (NEGATIVE) Urine WBC (Auto) (0-5) /HPF Urine RBC (Auto) (0-2) /HPF U Epithel Cells (Auto) (FEW) /HPF Urine Bacteria (Auto) (NEGATIVE) /HPF Urine Mucus (Auto) (NEGATIVE) /HPF Urine Culture Reflexed (NO) Urine Glucose (NEGATIVE) mg/dL Monoscreen (Negative) Influenza Type A Ag (NEGATIVE) Influenza Type B Ag (NEGATIVE) RSV (PCR) (Negative) Group A Strep Antibody (NEGATIVE) - Progress Progress: improved Discussed with : Freddy (spoke with Dr. Dao - pt may go home when K+ elevates.) Counseled pt/family regarding: lab results - Departure Departure Disposition: Home Clinical Impression: Chest pain, shortness of air, vomiting, diarrhea, hypokalemia - corrected in er , Pharyngitis Condition: Stable Critical Care Time: No Referrals: MARIBETH CONRAD MD [Primary Care Provider] - Instructions: Shortness of Breath (Dyspnea) (DC), Chest Pain, Nausea and Vomiting, Adult, Diarrhea and Traveler's Diarrhea, Adult (DC) Additional Instructions: Follow up with Dr Conrad tomorrow. Stay at home(self-isolation) for the next 14 days. Prescriptions: Promethazine HCl 25 mg [Phenergan 25 mg] 25 mg PO Q4H PRN PRN #14 tablet PRN Reason: Nausea/Vomiting
[2019-05-09 19:10] LABS: Absolute Neutrophil Ct (ANC) 8.56 (1.4-6.9); BASOPHIL % 0.2 % (0.0-0.4); Basophil (Absolute #) 0.02 (0-0.4); Eosinophil % 0.4 % (0.00-5.0); Eosinophil (Absolute #) 0.05 (0-0.5); Hematocrit 28.5 % (35-47); Hemoglobin 9.7 gm/dl (12.0-16.0); Lymphocyte (Absolute #) 1.98 (1.0-4.6); Lymphocytes % 17.3 % (24.0-44.0); Mean Cell Volume 89.9 fl (78-100); Mean Corpuscular Hemoglobin 30.6 pg (26-32); Mean Platelet Volume 10.5 fl (7.5-11.0); Monocyte (Absolute #) 0.81 (0.0-1.3); Monocytes % 7.1 % (0.0-12.0); Platelet Count 194 K/mm3 (150-450); Red Blood Count 3.17 M/mm3 (4.1-5.4); Red Cell Distribution Width 13.1 % (11.5-14.0); White Blood Count 11.4 K/mm3 (4.0-10.5)
[2019-05-09 19:21] LABS: ALBUMIN 3.1 g/dL (3.5-5.0); ALKALINE PHOSPHATASE 72 U/L (38-126); ANION GAP 8.3 MEQ/L (5-15); BLOOD UREA NITROGEN 3 mg/dL (7-17); CHLORIDE 107 mmol/L (98-107); Calcium 8.7 mg/dL (8.4-10.2); Carbon Dioxide 26 mmol/L (22-30); Creatinine 1 0.29 mg/dL (0.52-1.04); Glucose 92 mg/dL (74-106); SGOT/AST 23 U/L (14-36); SGPT/ALT 12 U/L (0-35); SODIUM 139 mmol/L (137-145); Total Protein 6.2 g/dL (6.3-8.2)
[2019-05-09 19:30] LABS: NT PRO BNP 79.7 pg/mL (0-450)
[2019-05-09 19:39] LABS: Potassium 2.7 mmol/L (3.5-5.1)
[2019-05-09] MEDS ORDERED: Sodium Chloride 0.9% W/ 20 mEq KCl/LITER 1,000 ML IV SCH (19:45)
[2019-05-09] MEDS ORDERED: Sodium Chloride 0.9% W/ 20 mEq KCl/LITER 1,000 ML IV ONE (19:52)
[2019-05-09] MEDS ORDERED: TYLENOL 325 MG PO ONE (20:10)
[2019-05-09] MEDS ORDERED: TYLENOL 325 MG ONE (20:14)
[2019-05-09 20:50] LABS: Group A Strep NEGATIVE (NEGATIVE); INFLUENZA A NEGATIVE (NEGATIVE); INFLUENZA B NEGATIVE (NEGATIVE); RESPIRATORY SYNCTIAL VIRUS NEGATIVE (Negative)
[2019-05-09 22:40] LABS: Appearance SLIGHTLY CLOUDY (CLEAR); Bacteria RARE /HPF (NEGATIVE); Bilirubin NEGATIVE (NEGATIVE); Blood NEGATIVE Ery/ul (0-5); Epithelial Cells FEW /HPF (FEW); Glucose NEGATIVE (NEGATIVE); Ketones NEGATIVE (NEGATIVE); Leukocyte Esterase TRACE (NEGATIVE); Mucus SLIGHT /HPF (NEGATIVE); Nitrite NEGATIVE (NEGATIVE); Protein,Urine Dip NEGATIVE (Negative); RBC 0-2 /HPF (0-2); Specific Gravity 1.013 (1.005-1.025); Urobilinogen NEGATIVE mg/dL (0-1); WBC 0-2 /HPF (0-5)
[2019-05-10 00:42] LABS: ANION GAP 8.7 MEQ/L (5-15); BLOOD UREA NITROGEN 3 mg/dL (7-17); CHLORIDE 108 mmol/L (98-107); Calcium 8.5 mg/dL (8.4-10.2); Carbon Dioxide 24 mmol/L (22-30); Creatinine 1 0.35 mg/dL (0.52-1.04); Glucose 170 mg/dL (74-106); SODIUM 138 mmol/L (137-145)
[2019-05-10 00:48] LABS: Potassium 2.7 mmol/L (3.5-5.1)
[2019-05-10] MEDS ORDERED: K-LYTE 25 MEQ PO ONE (00:50)
[2019-05-10] MEDS ORDERED: K-LYTE 25 MEQ ONE (00:54)
[2019-05-10] MEDS ORDERED: Sodium Chloride 0.9% W/ 20 mEq KCl/LITER 1,000 ML IV ONE (00:55)
[2019-05-10] MEDS ORDERED: Sodium Chloride 0.9% W/ 20 mEq KCl/LITER 1,000 ML IV SCH (01:00)
[2019-05-10] MEDS ORDERED: MAALOX ES 30 ML UNIT DOSE PO ONE ×2 (01:10→01:13)
[2019-05-10] MEDS ORDERED: MAALOX ES 30 ML UNIT DOSE ONE (01:14)
[2019-05-10 03:30] VITALS: BP 129/84; PULSE 88
[2019-05-10 03:40] LABS: CHLORIDE 110 mmol/L (98-107); Calcium 8.2 mg/dL (8.4-10.2); Carbon Dioxide 25 mmol/L (22-30); Creatinine 1 0.31 mg/dL (0.52-1.04); Glucose 108 mg/dL (74-106); SODIUM 139 mmol/L (137-145)
[2019-05-10 03:41] LABS: BLOOD UREA NITROGEN 2 mg/dL (7-17)
[2019-05-10 03:42] LABS: Potassium 3.6 mmol/L (3.5-5.1)
[2019-05-10 04:35] VITALS: O2SAT 98
== END 2019-05-10 04:25 | disposition home or self-care (01) ==
LOC: ED 18:01
DX: R07.9 Chest pain, unspecified (principal); R06.02 Shortness of breath; R11.10 Vomiting, unspecified; R19.7 Diarrhea, unspecified; E87.6 Hypokalemia; J02.9 Acute pharyngitis, unspecified
CPT/HCPCS: 36000; 36415; 80048; 80053; 81001; 82150; 83690; 83880; 84484; 85025; 85379; 86308; 87631; 87651; 93005; 96360; 96361; 99000; 99285; A9270-GY

== ENCOUNTER 2019-05-28 11:36 | Observation (INO) | payer OTHER ==
[2019-05-28] MEDS ORDERED: Lactated Ringers 1,000 ML IV SCH (13:30)
[2019-05-28] MEDS ORDERED: TYLENOL 325 MG PO PRN (13:38)
[2019-05-28 13:42] LABS: BASOPHIL % 0.3 % (0.0-0.4); Basophil (Absolute #) 0.03 (0-0.4); Eosinophil % 0.7 % (0.00-5.0); Eosinophil (Absolute #) 0.06 (0-0.5); Hematocrit 26.5 % (35-47); Hemoglobin 9.2 gm/dl (12.0-16.0); Lymphocyte (Absolute #) 1.61 (1.0-4.6); Lymphocytes % 17.9 % (24.0-44.0); Mean Cell Volume 87.7 fl (78-100); Mean Corpuscular Hemoglobin 30.5 pg (26-32); Mean Corpuscular Hgb Concent. 34.7 g/dl (32-36); Mean Platelet Volume 10.1 fl (7.5-11.0); Monocytes % 5.6 % (0.0-12.0); Neutrophil % 75.5 % (36.0-66.0); Platelet Count 187 K/mm3 (150-450); Red Blood Count 3.02 M/mm3 (4.1-5.4); Red Cell Distribution Width 12.6 % (11.5-14.0)
[2019-05-28 13:56] LABS: ALBUMIN 2.9 g/dL (3.5-5.0); ALKALINE PHOSPHATASE 77 U/L (38-126); ANION GAP 10.7 MEQ/L (5-15); BLOOD UREA NITROGEN 3 mg/dL (7-17); CHLORIDE 104 mmol/L (98-107); Carbon Dioxide 26 mmol/L (22-30); Creatinine 1 0.42 mg/dL (0.52-1.04); Glucose 142 mg/dL (74-106); SGOT/AST 23 U/L (14-36); SGPT/ALT 13 U/L (0-35); SODIUM 139 mmol/L (137-145); Total Protein 5.9 g/dL (6.3-8.2)
[2019-05-28 14:02] LABS: Potassium 2.5 mmol/L (3.5-5.1)
[2019-05-28 14:15] LABS: Appearance SLIGHTLY CLOUDY (CLEAR); Bacteria FEW /HPF (NEGATIVE); Bilirubin NEGATIVE (NEGATIVE); Blood SMALL Ery/ul (0-5); Epithelial Cells RARE /HPF (FEW); Glucose NEGATIVE (NEGATIVE); Ketones NEGATIVE (NEGATIVE); Leukocyte Esterase SMALL (NEGATIVE); Mucus SLIGHT /HPF (NEGATIVE); Nitrite NEGATIVE (NEGATIVE); Protein,Urine Dip NEGATIVE (Negative); Specific Gravity 1.008 (1.005-1.025); Urobilinogen NEGATIVE mg/dL (0-1); WBC 26-50 /HPF (0-5)
[2019-05-28 14:33] LABS: Creatinine, Urine Random 49.4 mg/dl (30-125)
[2019-05-28 14:44] LABS: Amphetamine,Urine NEGATIVE (NEGATIVE); Barbiturate,Urine NEGATIVE (NEGATIVE); Benzodiazepine,Urine NEGATIVE (NEGATIVE); Cocaine,Urine NEGATIVE (NEGATIVE); Methadone,Urine NEGATIVE (NEGATIVE); Opiate,Urine NEGATIVE (NEGATIVE); PCP,Urine NEGATIVE (NEGATIVE); THC,Urine NEGATIVE (NEGATIVE)
[2019-05-28] MEDS: POTASSIUM CHLORIDE 20 mEq IN WATER 100ML 20 MEQ/100 ML BAG IV SCH ×2 (15:10→19:07)
[2019-05-28 16:05] VITALS: O2SAT 97
[2019-05-28] MEDS: Magnesium 1 Gm / 100 Ml D5W*** 100 ML IV SCH ×2 (21:59→22:30)
[2019-05-28 23:29] LABS: MAGNESIUM 1.8 mg/dL (1.6-2.3)
[2019-05-28 23:32] LABS: Potassium 2.8 mmol/L (3.5-5.1)
[2019-05-28] MEDS ORDERED: Klor Con 10 MEQ PO ONE ×2 (23:41→23:53)
[2019-05-29 03:30] VITALS: BP 125/63; PULSE 86
== END 2019-05-29 00:15 | disposition home or self-care (01) ==
LOC: MED SURG 12:07
PROVIDERS: ADMIT Family Medicine; ATTEND Family Medicine
DX: O26.893 Other specified pregnancy related conditions, third trimester (principal); Z3A.37 37 weeks gestation of pregnancy; R42 Dizziness and giddiness
CPT/HCPCS: 36415; 59025; 80053; 80307; 81001; 82570; 83735; 84132; 84156; 85025; 87086; 93005; G0378; J3475; J3480; A9270-GY

== ENCOUNTER 2019-06-10 08:01 | Inpatient (IN) | payer OTHER ==
[~2019-06-10 08:01] MED LIST: Cervidil 10 MG VAG SCH
[2019-06-10] MEDS ORDERED: PITOCIN 30 UNITS/ LR 500 ML 500 ML IV SCH ×3 (09:00→21:30)
[2019-06-10 09:31] VITALS: O2SAT 97
[2019-06-10] MEDS: CYTOTEC PO PRN ×4 (09:38→16:34)
[2019-06-10 10:04] LABS: Hematocrit 29.6 % (35-47); Hemoglobin 9.9 gm/dl (12.0-16.0); Mean Cell Volume 90.8 fl (78-100); Mean Corpuscular Hemoglobin 30.4 pg (26-32); Mean Corpuscular Hgb Concent. 33.4 g/dl (32-36); Mean Platelet Volume 10.8 fl (7.5-11.0); Platelet Count 173 K/mm3 (150-450); Red Blood Count 3.26 M/mm3 (4.1-5.4); Red Cell Distribution Width 14.7 % (11.5-14.0); White Blood Count 8.7 K/mm3 (4.0-10.5)
[2019-06-10 10:08] LABS: Appearance SLIGHTLY CLOUDY (CLEAR); Bacteria FEW /HPF (NEGATIVE); Bilirubin NEGATIVE (NEGATIVE); Blood NEGATIVE Ery/ul (0-5); Epithelial Cells RARE /HPF (FEW); Glucose NEGATIVE (NEGATIVE); Ketones NEGATIVE (NEGATIVE); Leukocyte Esterase MODERATE (NEGATIVE); Mucus SLIGHT /HPF (NEGATIVE); Nitrite NEGATIVE (NEGATIVE); Protein,Urine Dip 30 (Negative); RBC 0-2 /HPF (0-2); Specific Gravity 1.012 (1.005-1.025); Urobilinogen NEGATIVE mg/dL (0-1); WBC 51-100 /HPF (0-5)
[2019-06-10 10:19] LABS: Amphetamine,Urine NEGATIVE (NEGATIVE); Barbiturate,Urine NEGATIVE (NEGATIVE); Benzodiazepine,Urine NEGATIVE (NEGATIVE); Cocaine,Urine NEGATIVE (NEGATIVE); Methadone,Urine NEGATIVE (NEGATIVE); Opiate,Urine NEGATIVE (NEGATIVE); PCP,Urine NEGATIVE (NEGATIVE); THC,Urine NEGATIVE (NEGATIVE)
[2019-06-10 10:35] LABS: ALKALINE PHOSPHATASE 100 U/L (38-126); ANION GAP 11.2 MEQ/L (5-15); BLOOD UREA NITROGEN < 2 mg/dL (7-17); CHLORIDE 108 mmol/L (98-107); Calcium 8.9 mg/dL (8.4-10.2); Carbon Dioxide 22 mmol/L (22-30); Glucose 109 mg/dL (74-106); SGOT/AST 21 U/L (14-36); SGPT/ALT 12 U/L (0-35); SODIUM 139 mmol/L (137-145)
[2019-06-10 10:35] LABS: ANISOCYTOSIS 1+; BAND 6 % (0.0-2.0); Eosinophil 1 % (0.00-3.0); Lymphocytes 16 % (24-44); Monocyte 6 % (0.0-12.0); Neutrophils 71 % (36.0-66.0); Polychromasia 1+; Total Cells Counted 100; Toxic Granulation 1+
[2019-06-10 10:36] LABS: Microcytosis 1+; Platelet Estimate NORMAL (NORMAL)
[2019-06-10] MEDS ORDERED: Klor Con 10 MEQ PO ONE (10:42)
[2019-06-10] MEDS: FERREX 150 PO SCH (12:20)
[2019-06-10] MEDS: Magnesium 1 Gm / 100 Ml D5W*** 100 ML IV SCH ×2 (13:42→14:37)
[2019-06-10] MEDS ORDERED: Tums EX 750 MG PO SCH (15:00)
[2019-06-10] MEDS ORDERED: Tums EX 750 MG PO PRN (16:08)
[2019-06-10 17:23] LABS: Potassium 3.7 mmol/L (3.5-5.1)
[2019-06-10] MEDS ORDERED: Zofran 4 MG/2 ML VIAL IV PRN (19:40)
[2019-06-10] MEDS ORDERED: BRETHINE 1 MG/ML SQ PRN (21:21)
[2019-06-11] MEDS: Lactated Ringers 1,000 ML IV SCH ×2 (00:03→04:00)
[2019-06-11] MEDS ORDERED: XYLOCAINE 1% HCL 20 ML MDV ONE (05:50)
[2019-06-11] MEDS ORDERED: TUCKS TP PRN (07:21)
[2019-06-11] MEDS ORDERED: Mylicon 80MG PO PRN (07:21)
[2019-06-11] MEDS ORDERED: NORCO 5/325 MG PO PRN (07:21)
[2019-06-11] MEDS ORDERED: Anucort-HC SUPPOSITORY PR PRN (07:21)
[2019-06-11] MEDS ORDERED: Dulcolax 10 MG SUPP PR PRN (07:21)
[2019-06-11] MEDS ORDERED: CORTISONE 1% CREAM TP PRN (07:21)
[2019-06-11] MEDS ORDERED: Dermoplast Spray TP PRN (07:21)
[2019-06-11 08:43] LABS: ABO TYPING AB; ANTIBODY SCREEN NEGATIVE (NEGATIVE); RH TYPING NEGATIVE
[2019-06-11] MEDS ORDERED: XYLOCAINE 1% HCL 20 ML MDV IJ PRN (08:43)
[2019-06-11] MEDS ORDERED: PITOCIN 30 UNITS/ LR 500 ML 500 ML IV SCH (09:00)
[2019-06-11] MEDS: TYLENOL EXTRA STRENGTH 500 MG PO PRN ×3 (12:20→23:43)
[2019-06-11] MEDS: MOTRIN 400 MG PO PRN ×2 (13:50→21:28)
[2019-06-11] MEDS ORDERED: OB EPIDURAL NAROPIN/SUFENTANIL IN NACL EPIDURAL PRN (15:19)
[2019-06-11] MEDS: Rhogam Plus 300 MCG IM ONE ×2 (18:19→21:48)
[2019-06-11] MEDS: Adacel Vial IM ONE ×2 (18:22→21:35)
[2019-06-11] MEDS: Colace 100 MG PO SCH (21:28)
[2019-06-12 05:06] LABS: Hematocrit 25.8 % (35-47); Hemoglobin 8.4 gm/dl (12.0-16.0); Mean Cell Volume 92.1 fl (78-100); Mean Corpuscular Hgb Concent. 32.6 g/dl (32-36); Mean Platelet Volume 11.6 fl (7.5-11.0); Platelet Count 154 K/mm3 (150-450); Red Cell Distribution Width 14.8 % (11.5-14.0); White Blood Count 8.4 K/mm3 (4.0-10.5)
[2019-06-12 05:28] LABS: ANION GAP 9.4 MEQ/L (5-15); BLOOD UREA NITROGEN 7 mg/dL (7-17); CHLORIDE 107 mmol/L (98-107); Calcium 8.2 mg/dL (8.4-10.2); Carbon Dioxide 24 mmol/L (22-30); Creatinine 1 0.39 mg/dL (0.52-1.04); Glucose 101 mg/dL (74-106); MAGNESIUM 1.3 mg/dL (1.6-2.3); Potassium 3.3 mmol/L (3.5-5.1); SODIUM 137 mmol/L (137-145)
[2019-06-12 05:48] LABS: BAND 1 % (0.0-2.0); Lymphocytes 32 % (24-44); Monocyte 8 % (0.0-12.0); Neutrophils 59 % (36.0-66.0); Platelet Estimate NORMAL (NORMAL); Polychromasia 1+; Total Cells Counted 100
[2019-06-12] MEDS: MOTRIN 400 MG PO PRN ×3 (05:53→22:45)
[2019-06-12] MEDS ORDERED: Magnesium 1 Gm / 100 Ml D5W*** 100 ML IV SCH (09:30)
[2019-06-12] MEDS ORDERED: POTASSIUM CHLORIDE 20 mEq IN WATER 100ML 20 MEQ/100 ML BAG IV SCH (09:30)
[2019-06-12] MEDS ORDERED: Sodium Chloride 0.9% 1000 ML 1,000 ML IV SCH (09:45)
[2019-06-12] MEDS ORDERED: Potassium Chloride 40 MEQ/20 ML VIAL 40 MEQ, Magnesium Sulfate 1 GM/2 ML VIAL*** 2 GM i... IV SCH ×3 (10:00)
[2019-06-12] MEDS: FERREX 150 PO SCH (10:29)
[2019-06-12] MEDS: Colace 100 MG PO SCH ×3 (10:30→22:45)
[2019-06-12] MEDS: MAG-OX 400 PO SCH (11:43)
[2019-06-12] MEDS: Klor Con 10 MEQ PO SCH (11:43)
[2019-06-12] MEDS: TYLENOL EXTRA STRENGTH 500 MG PO PRN (22:44)
[2019-06-13 04:32] LABS: ANION GAP 7.9 MEQ/L (5-15); BLOOD UREA NITROGEN 9 mg/dL (7-17); CHLORIDE 108 mmol/L (98-107); Calcium 8.8 mg/dL (8.4-10.2); Carbon Dioxide 25 mmol/L (22-30); Creatinine 1 0.51 mg/dL (0.52-1.04); Glucose 105 mg/dL (74-106); MAGNESIUM 1.3 mg/dL (1.6-2.3); Potassium 3.4 mmol/L (3.5-5.1); SODIUM 138 mmol/L (137-145)
[2019-06-13] MEDS: MOTRIN 400 MG PO PRN ×2 (06:31→21:38)
[2019-06-13 09:27] LABS: Hematocrit 25.7 % (35-47); Hemoglobin 8.4 gm/dl (12.0-16.0); Mean Cell Volume 94.1 fl (78-100); Mean Corpuscular Hemoglobin 30.8 pg (26-32); Mean Corpuscular Hgb Concent. 32.7 g/dl (32-36); Mean Platelet Volume 11.3 fl (7.5-11.0); Platelet Count 160 K/mm3 (150-450); Red Blood Count 2.73 M/mm3 (4.1-5.4); Red Cell Distribution Width 14.6 % (11.5-14.0); White Blood Count 6.6 K/mm3 (4.0-10.5)
[2019-06-13 09:32] LABS: ALBUMIN 2.5 g/dL (3.5-5.0); BILIRUBIN,TOTAL 0.2 mg/dL (0.2-1.3); Total Protein 5.1 g/dL (6.3-8.2)
[2019-06-13 09:35] LABS: Creatinine, Urine Random 82.8 mg/dl (30-125)
[2019-06-13 09:40] LABS: Appearance SLIGHTLY CLOUDY (CLEAR); Bilirubin NEGATIVE (NEGATIVE); Blood LARGE Ery/ul (0-5); Epithelial Cells FEW /HPF (FEW); Glucose NEGATIVE (NEGATIVE); Ketones NEGATIVE (NEGATIVE); Leukocyte Esterase NEGATIVE (NEGATIVE); Mucus MODERATE /HPF (NEGATIVE); Nitrite NEGATIVE (NEGATIVE); Protein,Urine Dip 30 (Negative); Specific Gravity 1.017 (1.005-1.025); Urobilinogen NEGATIVE mg/dL (0-1)
[2019-06-13] MEDS ORDERED: Trandate 100 MG PO ONE (09:44)
[2019-06-13] MEDS: Klor Con 10 MEQ PO SCH (10:03)
[2019-06-13] MEDS: FERREX 150 PO SCH (10:03)
[2019-06-13] MEDS: Colace 100 MG PO SCH ×2 (10:03→21:38)
[2019-06-13] MEDS: MAG-OX 400 PO SCH (10:03)
[2019-06-13 10:13] LABS: Bacteria RARE /HPF (NEGATIVE); RBC >101 /HPF (0-2)
[2019-06-13 10:30] LABS: Eosinophil 1 % (0.00-3.0); Lymphocytes 44 % (24-44); Monocyte 1 % (0.0-12.0); Neutrophils 54 % (36.0-66.0); Total Cells Counted 100
[2019-06-13 10:31] LABS: Platelet Estimate NORMAL (NORMAL)
[2019-06-13] MEDS: TYLENOL EXTRA STRENGTH 500 MG PO PRN (21:41)
[2019-06-14] MEDS: TYLENOL EXTRA STRENGTH 500 MG PO PRN ×2 (02:15→08:10)
[2019-06-14] MEDS: MOTRIN 400 MG PO PRN (08:10)
[2019-06-14] MEDS: MAG-OX 400 PO SCH (09:18)
[2019-06-14] MEDS: Klor Con 10 MEQ PO SCH (09:18)
[2019-06-14] MEDS: FERREX 150 PO SCH (09:35)
[2019-06-14] MEDS ORDERED: Adalat CC 30 MG TABLET PO SCH (10:00)
[2019-06-14 11:16] LABS: Hematocrit 27.9 % (35-47); Hemoglobin 9.1 gm/dl (12.0-16.0); Mean Cell Volume 93.3 fl (78-100); Mean Corpuscular Hemoglobin 30.4 pg (26-32); Mean Corpuscular Hgb Concent. 32.6 g/dl (32-36); Mean Platelet Volume 11.2 fl (7.5-11.0); Platelet Count 187 K/mm3 (150-450); Red Blood Count 2.99 M/mm3 (4.1-5.4); Red Cell Distribution Width 14.4 % (11.5-14.0); White Blood Count 6.5 K/mm3 (4.0-10.5)
[2019-06-14 12:05] LABS: ALKALINE PHOSPHATASE 91 U/L (38-126); ANION GAP 11.7 MEQ/L (5-15); BLOOD UREA NITROGEN 10 mg/dL (7-17); CHLORIDE 107 mmol/L (98-107); Calcium 8.9 mg/dL (8.4-10.2); Carbon Dioxide 24 mmol/L (22-30); Creatinine 1 0.51 mg/dL (0.52-1.04); Glucose 109 mg/dL (74-106); MAGNESIUM 1.5 mg/dL (1.6-2.3); SGOT/AST 48 U/L (14-36); SGPT/ALT 32 U/L (0-35); SODIUM 139 mmol/L (137-145); Total Protein 6.1 g/dL (6.3-8.2)
[2019-06-14 15:30] VITALS: BP 136/84; PULSE 105
== END 2019-06-14 14:30 | disposition home or self-care (01) | DRG 807 ==
LOC: OB 08:01 → OBSVTOIN 06-11 02:05
PROVIDERS: ADMIT Family Medicine; ATTEND Family Medicine
PROC: 10E0XZZ Delivery of Products of Conception, External Approach (ICD-10-PCS; principal; 2019-06-11)
DX: O80 Encounter for full-term uncomplicated delivery (principal); Z37.0 Single live birth; Z3A.39 39 weeks gestation of pregnancy; D64.9 Anemia, unspecified; E83.42 Hypomagnesemia; E87.6 Hypokalemia; F41.9 Anxiety disorder, unspecified
CPT/HCPCS: 36415; 80048; 80053; 80076; 80307; 81001; 82570; 83735; 84132; 84156; 85025; 85027; 85461; 86850; 86900; 86901; 87086; 87340; 90471; 90715; 93005; 96372; G0378; J2405; J2590; J2790; J2795; J3475; J3480; A9270-GY

== ENCOUNTER 2019-09-01 18:43 | Emergency (ER) | payer OTHER ==
--- NOTE | 2019-09-01 19:20 | ERPHSYRPT ---
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 Patient's diastolic was in the 80s and 90s range and she is concerned. Patient has a history of psychiatric issues i ncluding panic disorder anxiety. She has not been on her medications for several months now. She was started on Lopressor and amlodipine to treat her high blood pressure. Patient also complained of some central, substernal nonradiating chest pain that was sharp and intermittent. Patient states she has mild shortness of breath. She has no abdominal pain. Patient is never had any heart issues in the past. She has no abdominal pain. Timing/Duration: today, intermittent Severity: mild Associated Symptoms: shortness of breath, chest pain Allergies/Adverse Reactions: Penicillins Allergy (Verified 09/01/19 19:49) Swelling of Face Home Medications: Amiloride HCl 2.5 mg PO DAILY 09/01/19 [History] Dicyclomine HCl 20 mg [Bentyl 20 mg] 20 mg PO QID 09/01/19 [History] Metoprolol Succinate 25 mg PO DAILY 09/01/19 [History] Hx Tetanus, Diphtheria Vaccination/Date Given: Yes Hx Influenza Vaccination/Date Given: No Hx Pneumococcal Vaccination/Date Given: No Travel Risk - International Travel Have you traveled outside of the country in past 3 weeks: No - Coronavirus Screening Are you exhibiting any of the following symptoms?: No Close contact with a COVID-19 positive Pt in past 14-21 Days: No - Review of Systems Constitutional: No Symptoms Eyes: No Symptoms Ears, Nose, & Throat: No Symptoms Respiratory: Dyspnea Cardiac: Chest Pain Abdominal/Gastrointestinal: No Symptoms Genitourinary Symptoms: No Symptoms Musculoskeletal: No Symptoms Skin: No Symptoms Neurological: No Symptoms Psychological: No Symptoms Endocrine: No Symptoms Hematologic/Lymphatic: No Symptoms Immunological/Allergic: No Symptoms All Other Systems: Reviewed and Negative - Past Medical History Pertinent Past Medical History: No Neurological History: No Pertinent History ENT History: Other Cardiac History: No Pertinent History Respiratory History: No Pertinent History Endocrine Medical History: No Pertinent History Musculoskeletal History: No Pertinent History GI Medical History: No Pertinent History History: No Pertinent History Psycho-Social History: Attention Deficit Disorder Female Reproductive Disorders: Other Other Medical History: hx of chronic tonsilitis. bipolar. ptsd - Past Surgical History Past Surgical History: Yes Neuro Surgical History: No Pertinent History Cardiac: No Pertinent History Respiratory: No Pertinent History Gastrointestinal: Cholecystectomy Genitourinary: No Pertinent History Musculoskeletal: No Pertinent History Female Surgical History: Dilation & Curettage Other Surgical History: D AND C - Social History Smoking Status: Never smoker How long have you smoked: 7 yrs Exposure to second hand smoke: No Alcohol Use: None Drug Use: none Patient Lives Alone: No Significant Family History: no pertinent family hx - Nursing Vital Signs Nursing Vital Signs: Initial Vital Signs Temperature 97.7 F 09/01/19 19:38 Pulse Rate 76 09/01/19 19:38 Respiratory Rate 20 09/01/19 19:38 Blood Pressure 111/74 09/01/19 19:38 O2 Sat by Pulse Oximetry 99 09/01/19 19:38 Pain Scale Pain Intensity 0 - Physical Exam General Appearance: no apparent distress, alert, anxiety Eye Exam: PERRL/EOMI, eyes nml inspection Ears, Nose, Throat Exam: normal ENT inspection, moist mucous membranes Neck Exam: normal inspection, non-tender, supple, full range of motion Respiratory Exam: normal breath sounds, chest tenderness, lungs clear, No respiratory distress, No airway intact Cardiovascular Exam: regular rate/rhythm, normal heart sounds, normal peripheral pulses Gastrointestinal/Abdomen Exam: soft, normal bowel sounds, No tenderness Pelvic Exam: not done Rectal Exam: not done Back Exam: normal inspection, normal range of motion, No CVA tenderness, No vertebral tenderness Extremity Exam: normal inspection, normal range of motion, pelvis stable Neurologic Exam: alert, oriented x 3, cooperative, 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 No changes when compared to EKG dated 06/11/2019) Ordered Tests: Active Orders 24 hr Category Date Time Status Pl Sql Developer STAT Care 09/01/19 19:36 Active EKG-ER Only STAT Care 09/01/19 19:36 Active IV Insertion STAT Care 09/01/19 19:36 Active Pulse Oximetry (ED) STAT Care 09/01/19 19:36 Active CBC W DIFF Stat Lab 09/01/19 20:10 Completed CMP Stat Lab 09/01/19 20:10 Completed D-DIMER QUANTITATIVE Stat Lab 09/01/19 20:10 Completed HCG,QUALITATIVE URINE Stat Lab 09/01/19 20:10 Completed TROPONIN Q3H Lab 09/01/19 20:10 Completed TROPONIN Q3H Lab 09/01/19 23:00 Ordered TROPONIN Q3H Lab 09/02/19 02:00 Ordered TROPONIN Q3H Lab 09/02/19 05:00 Ordered TROPONIN Q3H Lab 09/02/19 08:00 Ordered UA W/RFX UR CULTURE Stat Lab 09/01/19 20:10 Completed Urine Triage Profile Stat Lab 09/01/19 20:10 Completed Lab/Rad Data: Laboratory Result Diagrams 09/01/19 20:10 09/01/19 20:10 Laboratory Results 09/01/19 09/01/19 09/01/19 Range/Units 20:10 20:10 20:10 WBC (4.0-10.5) K/mm3 RBC (4.1-5.4) M/mm3 Hgb (12.0-16.0) gm/dl Hct (35-47) % MCV (78-100) fl MCH (26-32) pg MCHC (32-36) g/dl RDW (11.5-14.0) % Plt Count (150-450) K/mm3 MPV (7.5-11.0) fl Gran % (36.0-66.0) % Eos # (Auto) (0-0.5) Absolute Lymphs (auto) (1.0-4.6) Absolute Monos (auto) (0.0-1.3) Lymphocytes % (24.0-44.0) % Monocytes % (0.0-12.0) % Eosinophils % (0.00-5.0) % Basophils % (0.0-0.4) % Absolute Granulocytes (1.4-6.9) Basophils # (0-0.4) D-Dimer (215-500) ng/mL Sodium (137-145) mmol/L Potassium (3.5-5.1) mmol/L Chloride (98-107) mmol/L Carbon Dioxide (22-30) mmol/L Anion Gap (5-15) MEQ/L BUN (7-17) mg/dL Creatinine (0.52-1.04) mg/dL Estimated GFR ML/MIN Glucose (74-106) mg/dL Calcium (8.4-10.2) mg/dL Total Bilirubin (0.2-1.3) mg/dL AST (14-36) U/L ALT (0-35) U/L Alkaline Phosphatase (38-126) U/L Troponin I (0.000-0.034) ng/mL Serum Total Protein (6.3-8.2) g/dL Albumin (3.5-5.0) g/dL Urine Color YELLOW (YELLOW) Urine Appearance CLEAR (CLEAR) Urine pH 7.0 (5-6) Ur Specific [place] 1.013 (1.005-1.025) Urine Protein NEGATIVE (Negative) Urine Ketones NEGATIVE (NEGATIVE) Urine Blood NEGATIVE (0-5) Pascual/ul Urine Nitrite NEGATIVE (NEGATIVE) Urine Bilirubin NEGATIVE (NEGATIVE) Urine Urobilinogen NEGATIVE (0-1) mg/dL Ur Leukocyte Esterase NEGATIVE (NEGATIVE) Urine WBC (Auto) NONE (0-5) /HPF Urine RBC (Auto) NONE (0-2) /HPF U Epithel Cells (Auto) RARE (FEW) /HPF Urine Bacteria (Auto) NONE SEEN (NEGATIVE) /HPF Urine Mucus (Auto) SLIGHT (NEGATIVE) /HPF Urine Culture Reflexed NO (NO) Urine Glucose NEGATIVE (NEGATIVE) mg/dL Urine HCG, Qual NEGATIVE (Negative) Urine Opiates Level NEGATIVE (NEGATIVE) Ur Methadone NEGATIVE (NEGATIVE) Urine Barbiturates NEGATIVE (NEGATIVE) Ur Phencyclidine (PCP) NEGATIVE (NEGATIVE) Urine Amphetamine NEGATIVE (NEGATIVE) U Benzodiazepine Level NEGATIVE (NEGATIVE) Urine Cocaine NEGATIVE (NEGATIVE) Urine Marijuana (THC) NEGATIVE (NEGATIVE) 09/01/19 09/01/19 09/01/19 Range/Units 20:10 20:10 20:10 WBC (4.0-10.5) K/mm3 RBC (4.1-5.4) M/mm3 Hgb (12.0-16.0) gm/dl Hct (35-47) % MCV (78-100) fl MCH (26-32) pg MCHC (32-36) g/dl RDW (11.5-14.0) % Plt Count (150-450) K/mm3 MPV (7.5-11.0) fl Gran % (36.0-66.0) % Eos # (Auto) (0-0.5) Absolute Lymphs (auto) (1.0-4.6) Absolute Monos (auto) (0.0-1.3) Lymphocytes % (24.0-44.0) % Monocytes % (0.0-12.0) % Eosinophils % (0.00-5.0) % Basophils % (0.0-0.4) % Absolute Granulocytes (1.4-6.9) Basophils # (0-0.4) D-Dimer < 215 L (215-500) ng/mL Sodium 141 (137-145) mmol/L Potassium 3.9 (3.5-5.1) mmol/L Chloride 107 (98-107) mmol/L Carbon Dioxide 23 (22-30) mmol/L Anion Gap 15.7 H (5-15) MEQ/L BUN 11 (7-17) mg/dL Creatinine 0.51 L (0.52-1.04) mg/dL Estimated GFR > 60.0 ML/MIN Glucose 95 (74-106) mg/dL Calcium 9.8 (8.4-10.2) mg/dL Total Bilirubin 0.60 (0.2-1.3) mg/dL AST 32 (14-36) U/L ALT 45 H (0-35) U/L Alkaline Phosphatase 71 (38-126) U/L Troponin I < 0.012 (0.000-0.034) ng/mL Serum Total Protein 8.4 H (6.3-8.2) g/dL Albumin 4.8 (3.5-5.0) g/dL Urine Color (YELLOW) Urine Appearance (CLEAR) Urine pH (5-6) Ur Specific [place] (1.005-1.025) Urine Protein (Negative) Urine Ketones (NEGATIVE) Urine Blood (0-5) Pascual/ul Urine Nitrite (NEGATIVE) Urine Bilirubin (NEGATIVE) Urine Urobilinogen (0-1) mg/dL Ur Leukocyte Esterase (NEGATIVE) Urine WBC (Auto) (0-5) /HPF Urine RBC (Auto) (0-2) /HPF U Epithel Cells (Auto) (FEW) /HPF Urine Bacteria (Auto) (NEGATIVE) /HPF Urine Mucus (Auto) (NEGATIVE) /HPF Urine Culture Reflexed (NO) Urine Glucose (NEGATIVE) mg/dL Urine HCG, Qual (Negative) Urine Opiates Level (NEGATIVE) Ur Methadone (NEGATIVE) Urine Barbiturates (NEGATIVE) Ur Phencyclidine (PCP) (NEGATIVE) Urine Amphetamine (NEGATIVE) U Benzodiazepine Level (NEGATIVE) Urine Cocaine (NEGATIVE) Urine Marijuana (THC) (NEGATIVE) 09/01/19 Range/Units 20:10 WBC 7.9 (4.0-10.5) K/mm3 RBC 4.80 (4.1-5.4) M/mm3 Hgb 13.7 (12.0-16.0) gm/dl Hct 41.5 (35-47) % MCV 86.5 (78-100) fl MCH 28.5 (26-32) pg MCHC 33.0 (32-36) g/dl RDW 12.7 (11.5-14.0) % Plt Count 290 (150-450) K/mm3 MPV 10.4 (7.5-11.0) fl Gran % 57.2 (36.0-66.0) % Eos # (Auto) 0.06 (0-0.5) Absolute Lymphs (auto) 2.90 (1.0-4.6) Absolute Monos (auto) 0.40 (0.0-1.3) Lymphocytes % 36.6 (24.0-44.0) % Monocytes % 5.1 (0.0-12.0) % Eosinophils % 0.8 (0.00-5.0) % Basophils % 0.3 (0.0-0.4) % Absolute Granulocytes 4.54 (1.4-6.9) Basophils # 0.02 (0-0.4) D-Dimer (215-500) ng/mL Sodium (137-145) mmol/L Potassium (3.5-5.1) mmol/L Chloride (98-107) mmol/L Carbon Dioxide (22-30) mmol/L Anion Gap (5-15) MEQ/L BUN (7-17) mg/dL Creatinine (0.52-1.04) mg/dL Estimated GFR ML/MIN Glucose (74-106) mg/dL Calcium (8.4-10.2) mg/dL Total Bilirubin (0.2-1.3) mg/dL AST (14-36) U/L ALT (0-35) U/L Alkaline Phosphatase (38-126) U/L Troponin I (0.000-0.034) ng/mL Serum Total Protein (6.3-8.2) g/dL Albumin (3.5-5.0) g/dL Urine Color (YELLOW) Urine Appearance (CLEAR) Urine pH (5-6) Ur Specific [place] (1.005-1.025) Urine Protein (Negative) Urine Ketones (NEGATIVE) Urine Blood (0-5) Pascual/ul Urine Nitrite (NEGATIVE) Urine Bilirubin (NEGATIVE) Urine Urobilinogen (0-1) mg/dL Ur Leukocyte Esterase (NEGATIVE) Urine WBC (Auto) (0-5) /HPF Urine RBC (Auto) (0-2) /HPF U Epithel Cells (Auto) (FEW) /HPF Urine Bacteria (Auto) (NEGATIVE) /HPF Urine Mucus (Auto) (NEGATIVE) /HPF Urine Culture Reflexed (NO) Urine Glucose (NEGATIVE) mg/dL Urine HCG, Qual (Negative) Urine Opiates Level (NEGATIVE) Ur Methadone (NEGATIVE) Urine Barbiturates (NEGATIVE) Ur Phencyclidine (PCP) (NEGATIVE) Urine Amphetamine (NEGATIVE) U Benzodiazepine Level (NEGATIVE) Urine Cocaine (NEGATIVE) Urine Marijuana (THC) (NEGATIVE) - Progress Progress: unchanged Counseled pt/family regarding: lab results, diagnosis, need for follow-up - Departure Departure Disposition: Home Clinical Impression: Chest pain, Anxiety Condition: Stable Critical Care Time: No Referrals: KWAME GRACIA MD [Primary Care Provider] - Additional Instructions: Follow-up with your primary care physician for further management. Take your medications as prescribed
[2019-09-01 20:32] LABS: Absolute Neutrophil Ct (ANC) 4.54 (1.4-6.9); BASOPHIL % 0.3 % (0.0-0.4); Basophil (Absolute #) 0.02 (0-0.4); Eosinophil % 0.8 % (0.00-5.0); Eosinophil (Absolute #) 0.06 (0-0.5); Hematocrit 41.5 % (35-47); Hemoglobin 13.7 gm/dl (12.0-16.0); Lymphocytes % 36.6 % (24.0-44.0); Mean Cell Volume 86.5 fl (78-100); Mean Corpuscular Hemoglobin 28.5 pg (26-32); Mean Platelet Volume 10.4 fl (7.5-11.0); Monocytes % 5.1 % (0.0-12.0); Neutrophil % 57.2 % (36.0-66.0); Platelet Count 290 K/mm3 (150-450); Red Cell Distribution Width 12.7 % (11.5-14.0); White Blood Count 7.9 K/mm3 (4.0-10.5)
[2019-09-01 20:38] LABS: Appearance CLEAR (CLEAR); Bilirubin NEGATIVE (NEGATIVE); Blood NEGATIVE Ery/ul (0-5); Epithelial Cells RARE /HPF (FEW); Glucose NEGATIVE (NEGATIVE); Ketones NEGATIVE (NEGATIVE); Leukocyte Esterase NEGATIVE (NEGATIVE); Mucus SLIGHT /HPF (NEGATIVE); Nitrite NEGATIVE (NEGATIVE); Protein,Urine Dip NEGATIVE (Negative); Specific Gravity 1.013 (1.005-1.025); Urobilinogen NEGATIVE mg/dL (0-1)
[2019-09-01 20:42] LABS: Bacteria NONE SEEN /HPF (NEGATIVE)
[2019-09-01 20:54] LABS: Amphetamine,Urine NEGATIVE (NEGATIVE)
[2019-09-01 20:57] LABS: Barbiturate,Urine NEGATIVE (NEGATIVE); Benzodiazepine,Urine NEGATIVE (NEGATIVE); Cocaine,Urine NEGATIVE (NEGATIVE); Methadone,Urine NEGATIVE (NEGATIVE); Opiate,Urine NEGATIVE (NEGATIVE); PCP,Urine NEGATIVE (NEGATIVE); THC,Urine NEGATIVE (NEGATIVE)
[2019-09-01 21:28] LABS: ALBUMIN 4.8 g/dL (3.5-5.0); ALKALINE PHOSPHATASE 71 U/L (38-126); ANION GAP 15.7 MEQ/L (5-15); BLOOD UREA NITROGEN 11 mg/dL (7-17); CHLORIDE 107 mmol/L (98-107); Calcium 9.8 mg/dL (8.4-10.2); Carbon Dioxide 23 mmol/L (22-30); Creatinine 1 0.51 mg/dL (0.52-1.04); Glucose 95 mg/dL (74-106); Potassium 3.9 mmol/L (3.5-5.1); SGOT/AST 32 U/L (14-36); SGPT/ALT 45 U/L (0-35); SODIUM 141 mmol/L (137-145); Total Protein 8.4 g/dL (6.3-8.2)
[2019-09-01 22:31] VITALS: BP 115/74; PULSE 69; O2SAT 98
== END 2019-09-01 22:56 | disposition home or self-care (01) ==
LOC: ED 18:43
DX: R07.9 Chest pain, unspecified (principal); F41.9 Anxiety disorder, unspecified
CPT/HCPCS: 36000; 36415; 80053; 80307; 81001; 84484; 84703; 85025; 85379; 93005; 93041; 94760; 99284